=== PATIENT | female | born 1950 | race Caucasian/White ===

== ENCOUNTER 2018-01-05 11:49 | Day surgery (SDC) | payer MEDICARE, OTHER ==
[2018-01-05] VITALS (7 sets, daily range): BP systolic 106–123; BP diastolic 56–68
[~2018-01-05] VITALS: Ht 154.9 cm; Wt 75.7 kg
[2018-01-05] MEDS ORDERED: sod bicarbonate 150mEq in D5W 1,150 ML IV ONE (12:10)
[2018-01-05] MEDS ORDERED: diphenhydrAMINE 25mg capsule PO PRN (12:10)
[2018-01-05 12:29] LABS: BASOPHILS % (AUTO) 0.4 % (0-1); EOSINOPHILS # (AUTO) 0.1 X10'3 (0-0.9); EOSINOPHILS % (AUTO) 1.9 % (0-6); HEMATOCRIT 40.8 % (35.0-45.0); HEMOGLOBIN 13.5 g/dl (12.0-16.0); LYMPHOCYTES # (AUTO) 1.4 X10'3 (1.1-4.8); LYMPHOCYTES % (AUTO) 23.4 % (21-51); MEAN CORPUSCULAR VOLUME 93.9 FL (78-98); MEAN PLATELET VOLUME 8.8 FL (7.4-10.4); MONOCYTES # (AUTO) 0.4 X10'3 (0-0.9); MONOCYTES % (AUTO) 6.5 % (2-12); NEUTROPHILS % (AUTO) 67.8 % (42-75); PLATELET COUNT 189 X10'3 (140-440); RED BLOOD COUNT 4.34 X10'6 (4.20-5.60); RED CELL DISTRIBUTION WIDTH 13.5 % (11.5-14.5); WHITE BLOOD COUNT 5.8 X10'3 (4.5-11.0)
[2018-01-05] MEDS ORDERED: ATOR40TA PO (12:33)
[2018-01-05] MEDS ORDERED: CITA-278 PO (12:33)
[2018-01-05] MEDS ORDERED: METF500T7 PO (12:33)
[2018-01-05] MEDS ORDERED: GABA600T2 PO (12:33)
[2018-01-05] MEDS ORDERED: DILT180C89 PO (12:33)
[2018-01-05] MEDS ORDERED: ASPI81TA52 PO (12:33)
[2018-01-05 12:38] LABS: ALBUMIN 3.6 G/DL (3.4-5.0); ANION GAP 12 (8-16); BLOOD UREA NITROGEN 13 MG/DL (7-18); BUN/CREATININE RATIO 20.6 (6.6-38.0); CALCIUM 8.5 MG/DL (8.5-10.1); CHLORIDE 102 MMOL/L (99-107); CREATININE 0.63 MG/DL (0.40-0.90); GLUCOSE 159 MG/DL (70-104); MAGNESIUM 1.7 MG/DL (1.5-2.4); POTASSIUM 3.9 MMOL/L (3.5-5.1); SODIUM 138 MMOL/L (135-145); TOTAL CARBON DIOXIDE 23.8 MMOL/L (24-32); eGFR > 90 ML/MIN
[2018-01-05] MEDS ORDERED: midazolam 2 mg/2 ml injection ONE (14:34)
[2018-01-05] MEDS ORDERED: LIDOcaine 1% 30ml preserv. free vial ONE (14:35)
[2018-01-05] MEDS ORDERED: iohexol 350MG/ML 100ml bottle IV ONE (14:35)
[2018-01-05] MEDS ORDERED: fentaNYL/PF 50MCG/1 ML 2ML syringe ONE (14:35)
[2018-01-05] MEDS ORDERED: iohexol 350 MG/ML 50ML vial IV ONE (14:35)
[2018-01-05] MEDS ORDERED: heparin 1,000unit/ml 10ml vial 10 ML ONE (15:11)
[2018-01-05] MEDS ORDERED: iohexol 350 MG/1 ML 200ml bottle ONE (15:16)
[2018-01-05] MEDS ORDERED: HYDROcodone/acetaminophen 10/325mg tab PO PRN (17:00)
[2018-01-05] MEDS ORDERED: HYDROcodone/acetaminophen 5mg/325mg tablet PO PRN (17:00)
[2018-01-06] MEDS ORDERED: non-formulary drug (Gabapentin 1 TAB) PO SCH
[2018-01-06] MEDS ORDERED: gabapentin 300mg capsule PO SCH
[2018-01-06] MEDS ORDERED: aspirin 81mg tablet.DR PO SCH (08:00)
[2018-01-06] MEDS ORDERED: diltiazem CD 180mg cap (once-daily) PO SCH (08:00)
[2018-01-06] MEDS ORDERED: non-formulary drug (Atorvastatin Calcium* (Lipitor*) 1 TAB) PO SCH (08:00)
[2018-01-06] MEDS ORDERED: atorvastatin 20mg tablet PO SCH (08:00)
[2018-01-06] MEDS ORDERED: citalopram 20mg tablet PO SCH (08:00)
== END 2018-01-05 21:55 | disposition home or self-care (01) ==
LOC: SSTAY O 11:49 → PCU 3S 18:06 → SSTAY O 21:55
PROVIDERS: ATTEND Internal Medicine Cardiovascular Disease
DX: I25.10 Atherosclerotic heart disease of native coronary artery without angina pectoris (principal); E11.9 Type 2 diabetes mellitus without complications; E78.5 Hyperlipidemia, unspecified; I47.1 Supraventricular tachycardia; G47.30 Sleep apnea, unspecified; F32.9 Major depressive disorder, single episode, unspecified; Z85.3 Personal history of malignant neoplasm of breast; Z90.49 Acquired absence of other specified parts of digestive tract; Z90.12 Acquired absence of left breast and nipple; Z98.890 Other specified postprocedural states
CPT/HCPCS: 36415; 80048; 82948; 83735; 85025; 85610; 92920; 93005; 93458; 99152; 99153; A6257; C1725; C1760; C1769; C1874; C1887; C1894; J1644; J2250; J3010; J3490; Q0163; Q9967; A4620

== ENCOUNTER → 2018-02-05 | Day surgery (SDC) | payer MEDICARE, OTHER ==
[2018-02-05] VITALS (10 sets, daily range): BP systolic 91–125; BP diastolic 50–66
[~2018-02-05] VITALS: Ht 154.9 cm; Wt 77.8 kg
[~2018-02-05] MED LIST: ASPI81TA52 PO; ATOR40TA PO; CITA-278 PO; DILT180C89 PO; GABA600T2 PO; GLIP5TAB13 PO; LIDOcaine 1% (10mg/ml)w/preservative injection 20ml MDV ONE; METF500T7 PO; atropine 0.1mg/ml 10ml syringe ONE; clopidogrel 300mg tablet ONE; diphenhydrAMINE 25mg capsule PO PRN; fentaNYL/PF 50MCG/1 ML 2ML syringe ONE; heparin 1,000unit/ml 10ml vial 10 ML ONE; iohexol 350 MG/1 ML 200ml bottle ONE; midazolam 2 mg/2 ml injection ONE; normal saline 1000ml 1,000 ML IV SCH; sod bicarbonate 150mEq in D5W 1,150 ML IV ONE
[2018-02-05 09:49] LABS: BASOPHILS % (AUTO) 0.5 % (0-1); EOSINOPHILS # (AUTO) 0.1 X10'3 (0-0.9); EOSINOPHILS % (AUTO) 1.6 % (0-6); LYMPHOCYTES # (AUTO) 1.4 X10'3 (1.1-4.8); LYMPHOCYTES % (AUTO) 21.5 % (21-51); MEAN CORPUSCULAR HEMOGLOBIN 31.3 PG (27.0-31.0); MEAN CORPUSCULAR HGB CONC 33.3 % (33.0-36.5); MEAN CORPUSCULAR VOLUME 93.9 FL (78-98); MEAN PLATELET VOLUME 8.9 FL (7.4-10.4); MONOCYTES # (AUTO) 0.4 X10'3 (0-0.9); MONOCYTES % (AUTO) 6.2 % (2-12); NEUTROPHILS # (AUTO) 4.5 X10'3 (1.8-7.7); NEUTROPHILS % (AUTO) 70.2 % (42-75); PRE OP HEMATOCRIT 37.1 % (35.0-45.0); PRE OP HEMOGLOBIN 12.4 g/dL (12.0-16.0); PRE OP PLATELET COUNT 191 X10'3 (140-440); RED BLOOD COUNT 3.95 X10'6 (4.20-5.60); RED CELL DISTRIBUTION WIDTH 14.9 % (11.5-14.5)
[2018-02-05 09:56] LABS: ALBUMIN 3.6 G/DL (3.4-5.0); ANION GAP 9 (8-16); BLOOD UREA NITROGEN 12 MG/DL (7-18); BUN/CREATININE RATIO 20.7 (6.6-38.0); CALCIUM 8.8 MG/DL (8.5-10.1); CHLORIDE 102 MMOL/L (99-107); CREATININE 0.58 MG/DL (0.40-0.90); GLUCOSE 105 MG/DL (70-104); MAGNESIUM 1.4 MG/DL (1.5-2.4); POTASSIUM 4.1 MMOL/L (3.5-5.1); SODIUM 139 MMOL/L (135-145); TOTAL CARBON DIOXIDE 28.4 MMOL/L (24-32); eGFR > 90 ML/MIN
== END | disposition home or self-care (01) ==
LOC: SSTAY O 08:54
PROVIDERS: ATTEND Internal Medicine Cardiovascular Disease
DX: I25.118 Atherosclerotic heart disease of native coronary artery with other forms of angina pectoris (principal); I45.2 Bifascicular block; E78.5 Hyperlipidemia, unspecified; G47.33 Obstructive sleep apnea (adult) (pediatric); F32.9 Major depressive disorder, single episode, unspecified; E11.40 Type 2 diabetes mellitus with diabetic neuropathy, unspecified; I35.1 Nonrheumatic aortic (valve) insufficiency; I10 Essential (primary) hypertension; M19.90 Unspecified osteoarthritis, unspecified site; Z98.41 Cataract extraction status, right eye; Z87.891 Personal history of nicotine dependence; Z98.42 Cataract extraction status, left eye; Z72.89 Other problems related to lifestyle; Z92.21 Personal history of antineoplastic chemotherapy; Z96.652 Presence of left artificial knee joint; Z79.84 Long term (current) use of oral hypoglycemic drugs; Z79.891 Long term (current) use of opiate analgesic; Z79.82 Long term (current) use of aspirin; Z85.3 Personal history of malignant neoplasm of breast; Z90.12 Acquired absence of left breast and nipple; Z92.3 Personal history of irradiation; Z90.49 Acquired absence of other specified parts of digestive tract; Z98.890 Other specified postprocedural states; Z79.899 Other long term (current) drug therapy; Z83.3 Family history of diabetes mellitus; Z82.49 Family history of ischemic heart disease and other diseases of the circulatory system
CPT/HCPCS: 36415; 80048; 82948; 83735; 85025; 85610; 93005; 93454; 99152; 99153; A6257; C1760; C1874; C1887; C9600; J0461; J1644; J2001; J2250; J3010; J7030; Q0163; Q9967; C1725; C1769; C1894; C9601

== ENCOUNTER 2018-07-30 08:57 | Day surgery (SDC) | payer MEDICARE, OTHER ==
[~2018-07-30] VITALS: Ht 154.9 cm; Wt 80.2 kg
[2018-07-30] VITALS (11 sets, daily range): BP systolic 113–160; BP diastolic 52–79
[~2018-07-30 08:57] MED LIST changes: -CITA-278 PO; +CITA20TA28 PO; +GABA600T13 PO; -GABA600T2 PO; -LIDOcaine 1% (10mg/ml)w/preservative injection 20ml MDV ONE; -atropine 0.1mg/ml 10ml syringe ONE; -clopidogrel 300mg tablet ONE; -diphenhydrAMINE 25mg capsule PO PRN; -fentaNYL/PF 50MCG/1 ML 2ML syringe ONE; -heparin 1,000unit/ml 10ml vial 10 ML ONE; -iohexol 350 MG/1 ML 200ml bottle ONE; -midazolam 2 mg/2 ml injection ONE; -normal saline 1000ml 1,000 ML IV SCH; -sod bicarbonate 150mEq in D5W 1,150 ML IV ONE
[2018-07-30] MEDS ORDERED: diphenhydrAMINE 25mg capsule PO PRN (09:20)
[2018-07-30] MEDS ORDERED: normal saline 1,000 ML IV SCH (09:20)
[2018-07-30] MEDS ORDERED: DILT120T3 PO (09:27)
[2018-07-30] MEDS ORDERED: METF1000 PO (09:27)
[2018-07-30] MEDS ORDERED: OMEP20TA23 PO (09:27)
[2018-07-30] MEDS ORDERED: CLOP75TA35 PO (09:30)
[2018-07-30 09:45] LABS: BASOPHILS % (AUTO) 0.6 % (0-1); EOSINOPHILS # (AUTO) 0.1 X10'3 (0-0.9); EOSINOPHILS % (AUTO) 1.6 % (0-6); HEMATOCRIT 39.9 % (35.0-45.0); HEMOGLOBIN 13.3 g/dl (12.0-16.0); LYMPHOCYTES # (AUTO) 1.2 X10'3 (1.1-4.8); MEAN CORPUSCULAR HEMOGLOBIN 30.9 PG (27.0-31.0); MEAN CORPUSCULAR HGB CONC 33.4 g/dL (33.0-36.5); MEAN CORPUSCULAR VOLUME 92.6 FL (78-98); MEAN PLATELET VOLUME 9.3 FL (7.4-10.4); MONOCYTES # (AUTO) 0.4 X10'3 (0-0.9); MONOCYTES % (AUTO) 6.3 % (2-12); NEUTROPHILS # (AUTO) 4.4 X10'3 (1.8-7.7); NEUTROPHILS % (AUTO) 71.5 % (42-75); PLATELET COUNT 175 X10'3 (140-440); RED BLOOD COUNT 4.31 X10'6 (4.20-5.60); RED CELL DISTRIBUTION WIDTH 14.1 % (11.5-14.5); WHITE BLOOD COUNT 6.1 X10'3 (4.5-11.0)
[2018-07-30 09:50] LABS: ALBUMIN 4.1 G/DL (3.4-5.0); ANION GAP 9 (8-16); BLOOD UREA NITROGEN 14 MG/DL (7-18); CHLORIDE 103 MMOL/L (99-107); GLUCOSE 184 MG/DL (70-104); MAGNESIUM 1.6 MG/DL (1.5-2.4); POTASSIUM 3.7 MMOL/L (3.5-5.1); SODIUM 139 MMOL/L (135-145); TOTAL CARBON DIOXIDE 26.8 MMOL/L (24-32); eGFR 83 ML/MIN
[2018-07-30] MEDS ORDERED: LIDOcaine 1% (10mg/ml)w/preservative injection 20ml MDV ONE (10:27)
[2018-07-30] MEDS ORDERED: iohexol 350 MG/ML 50ML vial IV ONE (10:27)
[2018-07-30] MEDS ORDERED: iohexol 350MG/ML 100ml bottle IV ONE ×2 (10:28→11:30)
[2018-07-30] MEDS ORDERED: fentaNYL/PF 50MCG/1 ML 2ML syringe ONE (10:55)
[2018-07-30] MEDS ORDERED: midazolam 2 mg/2 ml injection ONE (10:55)
[2018-07-30] MEDS ORDERED: heparin 1,000unit/ml 10ml vial 10 ML ONE (11:29)
[2018-07-30] MEDS ORDERED: clopidogrel 300mg tablet ONE (12:00)
--- NOTE | 2018-07-30 12:30 | NUR ---
Pt complained of 5/[address] Mcdowell notified with new orders received for Toradol and Mylanta if Toradol ineffective.
[2018-07-30] MEDS ORDERED: ketorolac tromethamine 15mg/ml inj. IV STA (12:34)
--- NOTE | 2018-07-30 13:30 | NUR ---
Pt given toradol for chest pain as ordered. After 35 mins pain still present. Will give maalox as ordered. Addendum: 07/30/18 at 1446 by Byron Meyers RN Amended: Links added.
[2018-07-30] MEDS ORDERED: mag hydrox/Alum hydrox/simeth 30ml oral suspension PO STA (13:45)
--- NOTE | 2018-07-30 13:54 | NUR ---
Alisonx given as ordered. Addendum: 07/30/18 at 1448 by Byron Meyers RN Amended: Links added.
--- NOTE | 2018-07-30 14:40 | NUR ---
Pt feeling much better after maalox and no more chest pain. Pt eating now. Addendum: 07/30/18 at 1448 by Byron Meyers RN Amended: Links added.
== END 2018-07-30 15:30 | disposition home or self-care (01) ==
LOC: SSTAY O 08:57
PROVIDERS: ATTEND Internal Medicine Cardiovascular Disease
DX: I25.118 Atherosclerotic heart disease of native coronary artery with other forms of angina pectoris (principal); E78.5 Hyperlipidemia, unspecified; F32.9 Major depressive disorder, single episode, unspecified; E11.40 Type 2 diabetes mellitus with diabetic neuropathy, unspecified; G47.30 Sleep apnea, unspecified; Z85.3 Personal history of malignant neoplasm of breast; Z98.890 Other specified postprocedural states; Z79.82 Long term (current) use of aspirin; Z79.01 Long term (current) use of anticoagulants; Z79.4 Long term (current) use of insulin; Z79.899 Other long term (current) drug therapy; Z90.12 Acquired absence of left breast and nipple; Z90.49 Acquired absence of other specified parts of digestive tract; Z82.49 Family history of ischemic heart disease and other diseases of the circulatory system; Z83.3 Family history of diabetes mellitus; Z95.5 Presence of coronary angioplasty implant and graft
CPT/HCPCS: 36415; 80048; 82948; 83735; 85025; 85610; 93005; 93458; 99152; 99153; A6257; C1874; C1887; C9600; C9601; J1644; J1885; J2001; J2250; J3010; J7030; Q0163; Q9967; A4620; C1725; C1769; C1894